=== PATIENT | male | born 1930 | race Hispanic/Latino ===

== ENCOUNTER 2017-10-22 16:34 | Inpatient (IN) | payer MEDICARE ==
[~2017-10-22 16:34] MED LIST: ISOVUE-370 76%-LOCM 1 ML ONE
[2017-10-22 16:57] LABS: Actual Bicarbonate (HCO3a) 18.5 mEq/L (22-26); Base Excess (BEa) -6.8 mEq/L (0 (+/-) 2.5); CO2 Tension 36.3 mmHg (35.0-45.0); Calcium, Ionized 1.1 mmol/L (1.12-1.30); Hematocrit-ABG 28.4 % (42.0-52.0); Hemoglobin (Hb) 11.5 g/dL (14.0-18.0); O2 Tension (PaO2) 206.4 mmHg (80.0-100.0); pH, Arterial 7.33 (7.35-7.45)
[2017-10-22 16:58] LABS: Analyzer IN Cardio ER; Puncture Site RBA
[2017-10-22 16:59] LABS: ALV-art Gradient 102.725 (0-20)
[2017-10-22] MEDS ORDERED: Piperacillin/Tazobactam 4.5 GM in Sodium Chloride 0.9% 100 ML IVPB SCH (17:00)
[2017-10-22 17:13] LABS: #Lymphocytes 0.7 thou/uL (1.20-3.40); #Monocytes 0.4 thou/uL (0.11-0.59); #Neutrophils 8.4 thou/uL (1.40-6.50); %Basophils 0.2 % (0.0-1.0); %Eosinophils 0.4 % (0.0-10.0); %Lymphocytes 7.7 % (21.0-51.0); %Monocytes 3.7 % (0.0-10.0); Hemoglobin 11.9 g/dL (14.0-18.0); Mean Corpuscular HGB CONC 31.1 g/dL (32.0-36.0); Mean Corpuscular Hemoglobin 29.5 pg (27.0-31.0); Mean Corpuscular Volume 95.1 fl (80.0-94.0); Mean Platelet Volume 9.9 fL (7.4-10.4); Platelet Count 140 thou/uL (130-400); RBC Distribution Width 13.4 % (11.5-14.5); Red Blood Cell (RBC) Count 4.01 mill/uL (4.70-6.10); White Blood Cell (WBC) Count 9.6 thou/uL (4.8-10.8)
[2017-10-22 17:22] LABS: INR-International Normal Ratio 1.3; Prothrombin Time 16.1 SEC (12.0-14.7)
[2017-10-22 17:43] LABS: CKMB 4.8 ng/mL (0-6.6); Troponin I 0.181 ng/mL (< 0.028)
[2017-10-22 17:44] LABS: Bilirubin Small (Negative); Blood, Urine Large (Negative); Clarity CLOUDY (Clear); Glucose, Urine (Dipstick) Negative (Negative); Leukocyte Negative (Negative); Nitrite Negative (Negative); Protein, Urine (Dipstick) 30 mg/dL (Neg-Trace); Specific Gravity, Urine 1.028 (1.002-1.036)
[2017-10-22 17:45] LABS: ALT (SGPT) 16 U/L (8-55); AST (SGOT) 31 U/L (5-34); Albumin 2.7 g/dL (3.4-4.8); Alkaline Phosphatase 53 U/L (40-150); Anion Gap 12 mmol/L (10-20); BUN (Urea Nitrogen) 26 mg/dL (8.4-25.7); Bilirubin, Total 0.6 mg/dL (0.2-1.2); CK (CPK) 353 U/L (30-200); Calc. Creatinine Clearance 0 mL/min (70-130); Calcium 7.8 mg/dL (7.8-10.44); Carbon Dioxide 23 mmol/L (23-31); Chloride 129 mmol/L (98-107); Estimated GFR-MDRD 76; Glucose 83 mg/dL (83-110); Lipase 24 U/L (8-78); Potassium 3.2 mmol/L (3.5-5.1); Protein, Total 5.7 g/dL (5.8-8.1); Sodium 161 mmol/L (136-145)
[2017-10-22 17:48] LABS: Bacteria/HPF None Seen HPF (None Seen)
[2017-10-22 17:49] LABS: Pathc Cast-AUWi Flag 10.02 (0-2.49); Yeast-AUWi Flag 85.6 (0-25.0)
[2017-10-22 17:50] LABS: Hyaline Casts/LPF NONE SEEN LPF (0-3 Hyaline); Manual Microscopic Reviewed? No Path Casts Seen; Renal Epithelial None Seen HPF (0-3); Transitional Epithelial NONE SEEN HPF (0-3); Yeast-All Forms None Seen HPF (None Seen)
[2017-10-22] MEDS ORDERED: Oseltamivir 6 MG/ML ORAL SUSP PER TUBE SCH (19:45)
--- NOTE | 2017-10-22 19:59 | RAD ---
PORTABLE CHEST 10/22/17 PROVIDED CLINICAL HISTORY: Respiratory distress. FINDINGS: No comparisons. The cardiac and mediastinal silhouette is within normal limits. Vascular calcificatio n involves the aortic arch. Endotracheal tube is present, to which projects below the thoracic inlet but above the joel. Left subclavian cardiac pacing device is noted with wires overlying expected lo cations of RA and RV. Nodular density overlying the right lung base is noted. Probable nipple shadow overlies the left lung base. Possible additional nodular opacity in the right perihilar region. No pl eural fluid or pneumothorax apparent. IMPRESSION: 1. ET positioning as above. 2. Pulmonary nodule at the right lung base for which nonemergent chest CT is recommended. Code T POS: [id number]
[2017-10-22 20:00] LABS: Osmolality, Serum 340 mOsm/kg (280-295)
[2017-10-22] MEDS ORDERED: Ondansetron HCl/PF 4 MG/2 ML Vial IVP PRN ×2 (20:40→22:33)
[2017-10-22] MEDS ORDERED: Acetaminophen 325 MG TAB PO PRN ×2 (20:40→22:33)
[2017-10-22] MEDS ORDERED: Ondansetron ODT 4 MG TAB SL PRN (20:40)
[2017-10-22 20:43] LABS: Thyroid Stimulating Hormone 3.3726 uIU/mL (0.35-4.94)
[2017-10-22] MEDS ORDERED: Dextrose 5 %-0.45 % NaCl 1,000 ML IV SCH (20:45)
--- NOTE | 2017-10-22 20:46 | CT ---
CT ABDOMEN AND PELVIS WITH IV CONTRAST 10/22/17 PROVIDED CLINICAL HISTORY: Sepsis. FINDINGS: There are multiple patchy/nodular areas of abnormal parenchymal opacity involving the visualized righ t middle and lower lobes. These demonstrate a CT appearance typical for infection. One of these likel y produce the chest radiographic appearance described on exam performed earlier same date. There are bilateral pleural effusions with passive atelectasis at the left lung base. Minimal patchy ground gla ss opacity is present within the left lower lobe that may also reflect infection. The liver, spleen, pancreas, kidneys and adrenal glands demonstrate no acute abnormality. A gallstone is noted within the gallbladder. There is a tubular structure immediately inferior and posterior to the greater curvature of the stomach and anterior to the left adrenal gland measuring about 3.3 cm. T he etiology and significance of this finding is uncertain, though this could reflect an enlarged lymp h node. The liver demonstrates an unremarkable CT appearance, as do the pancreas, adrenal glands, and kidneys as well as spleen. There is nonspecific fat stranding seen and a minimal amount of noncircumscribed presacral fluid. There is mild fat stranding seen in the retroperitoneum about the uncinate process of the pancreas. There is no bowel dilatation or free air apparent. Vascular calcifications are noted involving the abdominal aorta and its branches. The osseous structures demonstrate no concerning osteoblastic or osteolytic lesions. There is evidenc e for decubitus ulcer overlying the dorsal aspect of the inferior sacrum. A Rodríguez catheter is noted w ithin the urinary bladder. IMPRESSION: 1. Right greater than left lower lobe pneumonia. 2. Minimal fluid density within the retroperitoneum about the head and uncinate process of the p ancrease. Please correlate with laboratory values for acute pancreatitis. 3. Possible enlarged lymph node within the left upper quadrant as described above. Significance of this finding is uncertain. 4. Cholelithiasis. 5. Other findings as above. POS: [facility]
[2017-10-22 21:03] LABS: Lactic Acid 3.2 mmol/L (0.5-2.2)
[2017-10-22 21:10] LABS: Anion Gap 18 mmol/L (10-20); BUN (Urea Nitrogen) 25 mg/dL (8.4-25.7); Calc. Creatinine Clearance 0 mL/min (70-130); Calcium 7.8 mg/dL (7.8-10.44); Carbon Dioxide 15 mmol/L (23-31); Estimated GFR-MDRD 78; Glucose 113 mg/dL (83-110); Potassium 3.4 mmol/L (3.5-5.1); Sodium 160 mmol/L (136-145)
[2017-10-22 21:15] LABS: Chloride 130 mmol/L (98-107)
[2017-10-22] MEDS ORDERED: Lactated Ringer's 1,000 ML IV SCH (21:15)
[2017-10-22] MEDS ORDERED: Lacri-Lube Opth Oint 3.5 GM TUBE EA EYE PRN (21:18)
[2017-10-22] MEDS ORDERED: Sedation Protocol FS ONE (21:18)
[2017-10-22] MEDS ORDERED: DISCONTINUE PREVIOUS NARCOTIC PAIN MEDICATIONS AND BENZODIAZEPINES FS SCH (21:35)
[2017-10-22] MEDS ORDERED: Propofol 1,000 MG/100 ML VIAL IV PRN (21:35)
[2017-10-22] MEDS ORDERED: Fentanyl 20 MCG/ML 250 ML IVPB SCH (21:35)
[2017-10-22] MEDS ORDERED: Lorazepam 2 MG/ML VIAL SLOW IVP PRN (21:35)
[2017-10-22] MEDS ORDERED: Morphine 2 MG/ML SYRINGE IVP PRN (21:37)
[2017-10-22 21:39] VITALS: BMI 23.3
[2017-10-22 22:17] LABS: Osmolality, Urine 687 mOsm/kg (300-900)
[2017-10-22 22:33] LABS: Sodium, Urine 96 mmol/L (Not Available)
[2017-10-22] MEDS ORDERED: Acetaminophen 650 MG Suppository PR PRN (22:33)
[2017-10-22] MEDS ORDERED: Ondansetron ODT 4 MG TAB PO PRN (22:33)
[2017-10-22] MEDS: Dextrose 10% in Water 1,000 ML IV SCH (22:43)
--- NOTE | 2017-10-22 22:57 | CON ---
DATE OF CONSULTATION: 10/22/2017 SERVICE: Pulmonary Medicine. REASON FOR CONSULTATION: Ventilated patient. HISTORY OF PRESENT ILLNESS: The patient is an 86-year-old male with past medical history si gnificant for apparently advanced dementia. He is currently intubated and under the influence of jeffrey e sedation and I really cannot interact with him or get elements of the history from him. Everything is obtained from chart review. He was recently in the hospital at [facility] roughly 1 week ag o. He was in the hospital there because there was unsafe living environment for the patient. Possib ly, he had some cellulitis. He had an unstageable decubitus ulcer of the sacrum. His living conditi ons were found to be deplorable and he was brought into the hospital for that reason. On the day of discharge, he was having some low grade fevers. A chest x-ray demonstrated some nonspecific infiltra isadora. Empirically, the patient was given some Levaquin. He was ultimately discharged to [facility] and it was recommended that the patient be enrolled in Hospice. Apparently at that time, t hat was thought to be imminent. In the nursing facility, he never got enrolled onto the hospice pro shelly. Despite being a DNI/DNR at the other hospital, when he was discharged, apparently he did not molina ve an out of hospital DNI/DNR either. When EMS services were called to the patient at [facility], they ended up intubating him because they could not maintain his oxygen saturations. He was subsequently brought to our emergency department. He underwent evaluation and was discovered to have influenza. He was initiated on some antibiotics. Multiple laboratories were done. He subsequ ently was tucked into the ICU. He cannot provide additional elements of the history. PAST MEDICAL HISTORY: 1. History of stroke. 2. Dementia, advanced. 3. Debility, advanced. 4. Failure to thrive. 5. Hypertension. 6. Type 2 diabetes mellitus. 7. Sacral decubitus ulcer, present on admission. PAST SURGICAL HISTORY: Unknown. SOCIAL HISTORY: Unknown. FAMILY HISTORY: Unknown. ALLERGIES: No known drug allergies, this is unconfirmed. MEDICATIONS: List of his inpatient medications were reviewed. I have also looked at his discharge m edicines from [facility]. Multiple updates were made at this time. REVIEW OF SYSTEMS: This cannot be obtained as the patient is currently intubated under the influence of some sedation. PHYSICAL EXAMINATION: VITAL SIGNS: Afebrile, pulse 88, blood pressure 159/66, respirations 11, saturation 96% on 31% FIO2 and a PEEP of 5. GENERAL: The patient is somnolent. Without stimulation, he will fall back to sleep in less than 3 s econds. He is CAM positive. HEENT: Normocephalic atraumatic. Sclerae are white, conjunctivae pink. Oral and nasal mucosa is mo ist without lesions. NECK: No cervical lymphadenopathy. JVD is present at the angle of jaw. LUNGS: Decreased air entry. There is a very prolonged expiratory phase with polyphonic wheezing. HEART: Normal rate, regular. ABDOMEN: Soft, nontender, nondistended, bowel sounds are positive. MUSCULOSKELETAL: No cyanosis or clubbing. There is no pitting in the bilateral lower extremities. There is skin tenting present throughout. GENITOURINARY: Rodríguez catheter in place. NEUROLOGIC: He spontaneously opens his eyes and attends. Pupils are equal, round, and reactive. He is currently riding the ventilator. Gag and corneal reflexes are intact. LABORATORY DATA: WBC 9.6, hemoglobin 11.9, platelets 140,000. Neutrophil count is 88%. INR 1.3. T he pH 7.33, pCO2 of 36, pO2 of 206, this was on 50% FIO2 with a PEEP of 5 at that time. Serum osmola lity 340. BNP 530, TSH is normal. Cortisol level is also normal. Troponin 0.181. Lactate is up tr ending to 3.2. Sodium 161, potassium 3.2, chloride 129. Creatinine is 0.94. Liver function studies are essentially unremarkable. Urinalysis is positive for small bilirubin, urobilinogen, and some wh ite blood cells. Influenza A is positive and B is negative. IMAGIN. CT of the abdomen and pelvis demonstrates bibasilar pneumonia. Fluid at the head of the pancreas . Left upper quadrant lymphadenopathy, possible. Cholelithiasis. 2. Chest x-ray demonstrates pulmonary nodule at the right base which possibly represents a nipple sh adow. Patchy infiltrates are present throughout bilateral lung garg. Endotracheal tube is in a go od position. Dual lead pacemaker is in place. ASSESSMENT: 1. Severe sepsis secondary to influenza. 2. Acute bronchitis secondary to influenza A. 3. Hypernatremia. 4. Metabolic encephalopathy. 5. Dementia, advanced. PLAN: We will give the patient daily dose of steroids and nebulized medications. We will provide hi m with Tamiflu. Free water will be provided, but after initial fluid resuscitation. Potassium will be replaced. Pulmonary Critical Care will continue to follow. Palliative Care consult will be initi ated as it seems that there is a pretty terrible social situation that is occurring here. Until we c an clarify what the patient's wishes would be under these circumstances, we will continue to provide supportive measures. Critical care time: 50 minutes.
--- NOTE | 2017-10-22 23:23 | HP ---
DATE OF ADMISSION: 22/10/2017 PRIMARY CARE PHYSICIAN: Dr. Cleaning at [facility]. CHIEF COMPLAINT: Shortness of breath with hypoxia. CODE STATUS: DNR. This was verified with the son by Dr. Duff. SURROGATE DECISION-MAKER: Son. REASON FOR ADMISSION: Respiratory failure. HISTORY OF PRESENT ILLNESS: Patient is an 86-year-old male with history of CVA and atrial fibrillati on who presented to the emergency room by EMS with shortness of breath and was subsequently intubated . The patient was admitted to [facility] from 10/15/2017 to 10/17/2017. He was admitted out of concern for safe living environment with possible cellulitis. Police welfare check was made and he was brought here as he was found in feces and not able to take care of himself . Per [place] and [place] record, patient is bed bound and is basically noncommunicative. He also had s ome sacral wounds on his back. He was discharged to [facility] with pureed diet. There was ongoing plan for transitioning to hospice. Details are unavailable at this time. Patient is intubated and sedated on mechanical ventilation. No family at the bedside. In the emergency room , his initial vital signs showed temperature 100.6 with respiration 12, pulse rate of 98, blood press ure of 167/91 with 100% on mechanical ventilation. His labs were consistent with sodium of 161 with potassium 3.2, chloride of 129 with BUN 26, creatinine 0.94 with a serum osmolality 340, lactic acid 2.6. His influenzae testing was positive for influenza A. His CT scan of the abdomen and pelvis was consistent with pneumonia, right greater than left lower lobe. His chest x-ray, however, was negati ve. He received Tamiflu, Zosyn, vancomycin, and IV fluids in the emergency room. PAST MEDICAL HISTORY: 1. History of cerebrovascular accident. 2. Chronic atrial fibrillation. 3. Hypertension. 4. Glaucoma. 5. Decubitus ulcer present on admission. 6. Deconditioning. PAST SURGICAL HISTORY: Pacemaker placement. ALLERGIES: No known drug allergies. CURRENT MEDICATIONS: At the [facility], vitamin C 500 mg b.i.d., zinc sulfate 220 mg daily, Pro-St at 30 mL b.i.d., Levaquin 750 mg daily for 10 days that was started on the . Other p.r.n. medica tions per [facility] protocol. FAMILY HISTORY: Cannot be obtained from the patient due to current cognitive status. SOCIAL HISTORY: Cannot be obtained from the patient due to current cognitive status. REVIEW OF SYSTEMS: Cannot be obtained from the patient due to current cognitive status. PHYSICAL EXAMINATION: VITAL SIGNS: As discussed above. GENERAL: An 86-year-old male, intubated on mechanical ventilation. HEENT: Head atraumatic, normocephalic. Sclerae anicteric. Dry mucous membranes. Endotracheal tube noted. NECK: Supple. No neck stiffness. LUNGS: Showed bibasilar crackles with scattered rhonchi and wheezing. Trachea was in midline. HEART: S1, S2 present. Tachycardic, 2/6 systolic murmur over the mitral area. No rubs or gallops. ABDOMEN: Soft. Bowel sounds present. Nondistended, no masses palpable. EXTREMITIES: No edema or calf tenderness. SKIN: Warm and dry. There is decubitus ulcer at the sacrum with dressing noted. NEUROLOGIC/PSYCHIATRIC: Could not be done due to current cognitive status. PERIPHERAL VASCULAR: Radial pulses palpable, low volume. MUSCULOSKELETAL: No joint swelling or tenderness. LABORATORY FINDINGS: As discussed above, chest x-ray by my review as discussed above. EKG by my rev iew showed atrial fibrillation with rapid ventricular response, heart rate of 104. CT scan of the ab domen as discussed above. IMPRESSION: 1. Acute hypoxic respiratory failure. 2. Acute Influenzae A infection with bibasilar pneumonia. Pneumonia is probably secondary to influe nza A versus aspiration. 3. Swallow dysfunction. 4. Physical deconditioning. 5. Severe dehydration with sodium of 161 and serum osmolality 340. 6. Hypokalemia. 7. Elevated troponins, probably secondary to demand ischemia. 8. Lactic acidosis. 9. Severe protein-calorie malnutrition. 10. Sepsis with acute organ dysfunction. 11. Chronic anemia. 12. Chronic atrial fibrillation, not an anticoagulation candidate. 13. Cholelithiasis. 14. Sick sinus syndrome, status post pacemaker. 15. Recent hospitalization at [facility] for cellulitis and inability to take care of himself. 16. History of cerebrovascular accident. PLAN: The patient will be monitored in the Intensive Care Unit. Ball Sorter has already seen the patient. We will continue D10 IV fluids. Ventilation sedation protocol. Palliative care team has ravindra hernandez consulted. We will monitor sodium closely. Empiric antibiotics. Recheck labs in a.m. We discu ssed the plan of care with the family. CODE STATUS: DNR, which was confirmed with the family by Dr. Duff. Surrogate decision maker is son, Zak Perales, phone number is [phone].
[2017-10-23] MEDS ORDERED: Famotidine 40 MG/5 ML Oral Suspension PER TUBE SCH (09:00)
[2017-10-23] MEDS ORDERED: Famotidine/PF 20 mg/2ml Vial SLOW IVP SCH (09:00)
[2017-10-23] MEDS ORDERED: Dextrose 10% in Water 1,000 ML IV SCH (14:43)
[2017-10-23] MEDS ORDERED: Morphine 2 MG/ML SYRINGE SLOW IVP PRN (14:52)
--- NOTE | 2017-10-23 15:54 | PRG ---
DATE OF SERVICE: 10/23/2017 SERVICE: Pulmonary Medicine. INTERVAL HISTORY: The patient is doing okay from a respiratory and cardiovascular standpoint this mo rning. Otherwise, there has been no interval change to his condition. It is my understanding that t he son is going to come in today. Once he provide this for the appropriate documentation, we will li zac transition over to comfort care only as we discussed last night on the phone, shortly after my d ictation. The patient cannot provide any additional elements of the history. PHYSICAL EXAMINATION: VITAL SIGNS: Afebrile, pulse 70, blood pressure 130/59, respirations 24, saturation 100% on 27% FIO2 and PEEP of 5. GENERAL: The patient is intubated and under the influence of some sedation. HEENT: Normocephalic, atraumatic. Sclerae are white, conjunctivae pink. Oral mucosa is moist witho ut lesions. LUNGS: Decent air entry. There is no prolonged expiratory phase, wheezing, rhonchi, or crackles. HEART: Normal rate, regular. ABDOMEN: Soft, nontender, nondistended. Bowel sounds are positive. MUSCULOSKELETAL: No cyanosis or clubbing. No pitting in the bilateral lower extremities. NEUROLOGIC: Grossly nonfocal. LABORATORY DATA: Sodium 160, potassium 3.4, chloride 130. Basic metabolic profile is otherwise unre markable. Lactate 3.2, troponin 0.18. TSH and cortisol levels are normal. Influenza A is positive, B negative. Bacterial culture of the coccyx and blood cultures x2 are negative to date. ASSESSMENT: 1. Acute hypoxic respiratory failure, improving. 2. Severe sepsis secondary to influenza. 3. Acute bronchitis secondary to influenza A. 4. Hypernatremia and hyperchloremia, improving. 5. Metabolic encephalopathy. 6. Dementia, advanced. 7. Severe protein-calorie malnutrition. 8. Decubitus ulcer, present on admission. PLAN: Once the family is ready, we will transition the patient over to comfort care only. All antib iotics, and other medications will be discontinued and we will give him Ativan and morphine to be use d for comfort if needed. Truth be told, the patient is breathing comfortably on minimal support off the ventilator. My suspicion is he will go on to breathe for a couple of hours if not days after the transition has made. If he continues to breathe, he can be transitioned to the floor with the care of hospice. CRITICAL CARE TIME: Thirty minutes.
[2017-10-23] MEDS: Dextrose 10% in Water 1,000 ML IV SCH (17:52)
--- NOTE | 2017-10-23 19:51 | PDOC.PN ---
- Subjective Encounter Start Date: 10/23/17 Encounter Start Time: 10:30 Patient seen and examined around 1030 am. On [facility] Vent. - Objective Resuscitation Status: Resuscitation Status DNR:Do Not Resuscitate Vital Signs & Weight: Vital Signs (12 hours) Temp Pulse Resp Pulse Ox 10/23/17 16:00 97.6 F 10/23/17 12:00 98.1 F 10/23/17 11:00 100 10/23/17 10:00 16 10/23/17 08:01 83 10/23/17 08:00 98.3 F 65 14 100 Weight Admit Weight 136 lb 0.403 oz Weight 136 lb 0.403 oz Most Recent Monitor Data Heart Rate from ECG 108 NIBP 124/59 NIBP BP-Mean 91 Respiration from ECG 26 SpO2 100 I&O: 10/22/17 10/23/17 10/24/17 06:59 06:59 06:59 Intake Total 2085 Output Total 445 340 Balance 1640 -340 Result Diagrams: 10/22/17 17:06 10/22/17 20:42 Radiology Reviewed by me: Yes (CXR - no infiltrate on 10/22) EKG Reviewed by me: Yes (Tele SR) Phys Exam - Physical Examination Constitutional: NAD (on Vent) Respiratory: no wheezing B/L rhonchi with rales at bases Cardiovascular: RRR, no rub no heaves/pulsation Gastrointestinal: soft, positive bowel sounds no guarding/rigidity Musculoskeletal: no edema Neuro/Psych - Cannot assess due to current cognition Dx/Plan - Plan DVT proph w/SCDs IMPRESSION: 1. Sepsis with acute organ dysfunction/Acute hypoxic respiratory failure/Acute Influenzae A infection with bibasilar pneumonia prob due to influenza A versus aspiration. 2. Severe dehydration with sodium of 161 and serum osmolality 340. 3. Hypokalemia. 4. Elevated troponins, probably secondary to demand ischemia. 5. Lactic acidosis. 6. Severe protein-calorie malnutrition/Chronic anemia/Chronic atrial fibrillation, not an anticoagulation candidate/Cholelithiasis/Sick sinus syndrome, status post pacemaker/Recent hospitalization at [facility] for cellulitis and inability to take care of himself/History of cerebrovascular accident/Swallow dysfunction/Physical deconditioning PLAN: * Plan d/w DPNILSA Crespo in detail. He agrees with hospice. * Consult Hospice * Comfort care per family Review of Systems - Review of Systems Other: Cannot obtain due to sedation. - Medications/Allergies Allergies/Adverse Reactions: Allergies Allergy/AdvReac Type Severity Reaction Status Date / Time No Allergy Information Allergy Verified 10/22/17 22:14 Available Medications: Current Medications Acetaminophen (Tylenol) 650 mg WI Q4H PRN PRN Reason: Headache/Fever or Pain Lorazepam (Ativan) 2 mg SLOW IVP Q15MIN PRN PRN Reason: Anxiety/Agitation Mineral Oil/White Petrolatum (Lacri-Lube Ointment) 0 gm EA EYE PRN PRN PRN Reason: Dry Eyes Morphine Sulfate (Morphine) 2 mg SLOW IVP Q15MIN PRN PRN Reason: pain or shortness of breath Last Admin: 10/23/17 19:18 Dose: 2 mg Ondansetron HCl (Zofran) 4 mg IVP Q6H PRN PRN Reason: Nausea/Vomiting
[2017-10-24] MEDS: Lorazepam 2 MG/ML VIAL SLOW IVP PRN ×3 (09:26→13:45)
[2017-10-24] MEDS: Scopolamine 1.5 mg/72 hour Patch TD SCH (15:26)
--- NOTE | 2017-10-24 20:37 | PDOC.PN ---
- Subjective Encounter Start Date: 10/24/17 Encounter Start Time: 16:00 Patient seen and examined. Appears comfortable - Objective Resuscitation Status: Resuscitation Status DNR:Do Not Resuscitate MAR Reviewed: Yes Vital Signs & Weight: Vital Signs (12 hours) Temp Pulse Resp BP Pulse Ox 10/24/17 14:00 97.6 F 79 20 155/75 H 92 L 10/24/17 12:00 97.8 F 10/24/17 08:48 95 Weight Admit Weight 136 lb 0.403 oz Weight 136 lb 0.403 oz Most Recent Monitor Data Heart Rate from ECG 65 NIBP 127/65 NIBP BP-Mean 83 Respiration from ECG 20 SpO2 100 I&O: 10/23/17 10/24/17 10/25/17 06:59 06:59 06:59 Intake Total 2085 120 Output Total 445 450 20 Balance 1640 -330 -20 Result Diagrams: 10/22/17 17:06 10/22/17 20:42 Dx/Plan - Plan IMPRESSION: 1. Sepsis with acute organ dysfunction/Acute hypoxic respiratory failure/Acute Influenzae A infection with bibasilar pneumonia prob due to influenza A versus aspiration. 2. Severe dehydration with sodium of 161 and serum osmolality 340. 3. Hypokalemia. 4. Elevated troponins, probably secondary to demand ischemia. 5. Lactic acidosis. 6. Severe protein-calorie malnutrition/Chronic anemia/Chronic atrial fibrillation, not an anticoagulation candidate/Cholelithiasis/Sick sinus syndrome, status post pacemaker/Recent hospitalization at [facility] for cellulitis and inability to take care of himself/History of cerebrovascular accident/Swallow dysfunction/Physical deconditioning PLAN: * Await Hospice Eval Review of Systems - Medications/Allergies Allergies/Adverse Reactions: Allergies Allergy/AdvReac Type Severity Reaction Status Date / Time No Allergy Information Allergy Verified 10/22/17 22:14 Available Medications: Current Medications Acetaminophen (Tylenol) 650 mg ID Q4H PRN PRN Reason: Headache/Fever or Pain Lorazepam (Ativan) 2 mg SLOW IVP Q15MIN PRN PRN Reason: Anxiety/Agitation Last Admin: 10/24/17 13:45 Dose: 2 mg Mineral Oil/White Petrolatum (Lacri-Lube Ointment) 0 gm EA EYE PRN PRN PRN Reason: Dry Eyes Morphine Sulfate (Morphine) 2 mg SLOW IVP Q15MIN PRN PRN Reason: pain or shortness of breath Last Admin: 10/23/17 19:18 Dose: 2 mg Ondansetron HCl (Zofran) 4 mg IVP Q6H PRN PRN Reason: Nausea/Vomiting Scopolamine (Transderm Scop) 1.5 mg TD Q3D [facility] Last Admin: 10/24/17 15:26 Dose: 1.5 mg
[2017-10-25] MEDS: Morphine 2 mg/2ml in 0.9% NaCl PF SYRINGE SLOW IVP PRN (00:49)
--- NOTE | 2017-10-25 22:34 | PDOC.PN ---
- Subjective Encounter Start Date: 10/25/17 Encounter Start Time: 16:00 Patient seen and examined. Appears comfortable. - Objective Resuscitation Status: Resuscitation Status DNR:Do Not Resuscitate MAR Reviewed: Yes Vital Signs & Weight: Vital Signs (12 hours) Temp Pulse Resp BP Pulse Ox 10/25/17 20:00 97.9 F 66 28 H 94 L 10/25/17 19:54 97.9 F 66 28 H 144/76 H 91 L 10/25/17 16:00 97.1 F L 65 20 152/71 H 93 L 10/25/17 11:35 96.1 F L 65 16 149/80 H 95 Weight Admit Weight 136 lb 0.403 oz Weight 136 lb 0.403 oz Most Recent Monitor Data Heart Rate from ECG 65 NIBP 127/65 NIBP BP-Mean 83 Respiration from ECG 20 SpO2 100 I&O: 10/24/17 10/25/17 10/26/17 06:59 06:59 06:59 Intake Total 120 Output Total 450 20 300 Balance -330 -20 -300 Result Diagrams: 10/22/17 17:06 10/22/17 20:42 Phys Exam - Physical Examination Constitutional: NAD Respiratory: no wheezing, no rhonchi Coase BS B/L Cardiovascular: RRR, no rub Gastrointestinal: soft, positive bowel sounds Musculoskeletal: no edema Dx/Plan - Plan IMPRESSION: 1. Sepsis with acute organ dysfunction/Acute hypoxic respiratory failure/Acute Influenzae A infection with bibasilar pneumonia prob due to influenza A versus aspiration. 2. Severe dehydration with sodium of 161 and serum osmolality 340. 3. Hypokalemia. 4. Elevated troponins, probably secondary to demand ischemia. 5. Lactic acidosis. 6. Severe protein-calorie malnutrition/Chronic anemia/Chronic atrial fibrillation, not an anticoagulation candidate/Cholelithiasis/Sick sinus syndrome, status post pacemaker/Recent hospitalization at [facility] for cellulitis and inability to take care of himself/History of cerebrovascular accident/Swallow dysfunction/Physical deconditioning PLAN: * Await Hospice Eval * Case manger called Zak - left message Review of Systems - Review of Systems Other: Cannot obtain due to current mentation - Medications/Allergies Allergies/Adverse Reactions: Allergies Allergy/AdvReac Type Severity Reaction Status Date / Time No Allergy Information Allergy Verified 10/22/17 22:14 Available Medications: Current Medications Acetaminophen (Tylenol) 650 mg [place] Q4H PRN PRN Reason: Headache/Fever or Pain Lorazepam (Ativan) 2 mg SLOW IVP Q15MIN PRN PRN Reason: Anxiety/Agitation Last Admin: 10/24/17 13:45 Dose: 2 mg Mineral Oil/White Petrolatum (Lacri-Lube Ointment) 0 gm EA EYE PRN PRN PRN Reason: Dry Eyes Morphine Sulfate/Sodium Chloride (Morphine 0.9% Nacl Pf 2 Mg/2ml) 2 mg SLOW IVP Q15MIN PRN PRN Reason: pain or shortness of breath Last Admin: 10/25/17 00:49 Dose: 2 mg Ondansetron HCl (Zofran) 4 mg IVP Q6H PRN PRN Reason: Nausea/Vomiting Scopolamine (Transderm Scop) 1.5 mg TD Q3D [facility] Last Admin: 10/24/17 15:26 Dose: 1.5 mg
[2017-10-26] MEDS: Morphine 2 mg/2ml in 0.9% NaCl PF SYRINGE SLOW IVP PRN ×2 (08:23→13:48)
--- NOTE | 2017-10-26 20:33 | PDOC.PN ---
- Subjective Encounter Start Date: 10/26/17 Encounter Start Time: 15:00 Patient seen and examined. No overnight events. - Objective Resuscitation Status: Resuscitation Status DNR:Do Not Resuscitate MAR Reviewed: Yes Vital Signs & Weight: Weight Admit Weight 136 lb 0.403 oz Weight 136 lb 0.403 oz Most Recent Monitor Data Heart Rate from ECG 65 NIBP 127/65 NIBP BP-Mean 83 Respiration from ECG 20 SpO2 100 I&O: 10/25/17 10/26/17 10/27/17 06:59 06:59 06:59 Output Total 20 300 300 Balance -20 -300 -300 Result Diagrams: 10/22/17 17:06 10/22/17 20:42 Phys Exam - Physical Examination Constitutional: NAD Respiratory: no wheezing, no rhonchi Coarse BS B/L Cardiovascular: RRR Gastrointestinal: soft Dx/Plan - Plan DVT proph w/SCDs IMPRESSION: 1. Sepsis with acute organ dysfunction/Acute hypoxic respiratory failure/Acute Influenzae A infection with bibasilar pneumonia prob due to influenza A versus aspiration. 2. Severe dehydration with sodium of 161 and serum osmolality 340. 3. Hypokalemia. 4. Elevated troponins, probably secondary to demand ischemia. 5. Lactic acidosis. 6. Severe protein-calorie malnutrition/Chronic anemia/Chronic atrial fibrillation, not an anticoagulation candidate/Cholelithiasis/Sick sinus syndrome, status post pacemaker/Recent hospitalization at [facility] for cellulitis and inability to take care of himself/History of cerebrovascular accident/Swallow dysfunction/Physical deconditioning PLAN: * Await Hospice Eval * Case manger trying to arrange hospice Review of Systems - Review of Systems Other: Cannot obtain due to current cognition - Medications/Allergies Allergies/Adverse Reactions: Allergies Allergy/AdvReac Type Severity Reaction Status Date / Time No Allergy Information Allergy Verified 10/22/17 22:14 Available Medications: Current Medications Acetaminophen (Tylenol) 650 mg PA Q4H PRN PRN Reason: Headache/Fever or Pain Lorazepam (Ativan) 2 mg SLOW IVP Q15MIN PRN PRN Reason: Anxiety/Agitation Last Admin: 10/24/17 13:45 Dose: 2 mg Mineral Oil/White Petrolatum (Lacri-Lube Ointment) 0 gm EA EYE PRN PRN PRN Reason: Dry Eyes Morphine Sulfate/Sodium Chloride (Morphine 0.9% Nacl Pf 2 Mg/2ml) 2 mg SLOW IVP Q15MIN PRN PRN Reason: pain or shortness of breath Last Admin: 10/26/17 13:48 Dose: 2 mg Ondansetron HCl (Zofran) 4 mg IVP Q6H PRN PRN Reason: Nausea/Vomiting Scopolamine (Transderm Scop) 1.5 mg TD Q3D [facility] Last Admin: 10/24/17 15:26 Dose: 1.5 mg
[2017-10-27] MEDS: Morphine 2 mg/2ml in 0.9% NaCl PF SYRINGE SLOW IVP PRN (08:47)
--- NOTE | 2017-10-27 09:34 | PDOC.PN ---
- Subjective Encounter Start Date: 10/27/17 Encounter Start Time: 09:31 Patient seen and examined. No new complaints. No overnight events - Objective Resuscitation Status: Resuscitation Status DNR:Do Not Resuscitate MAR Reviewed: Yes Vital Signs & Weight: Weight Admit Weight 136 lb 0.403 oz Weight 136 lb 0.403 oz Most Recent Monitor Data Heart Rate from ECG 65 NIBP 127/65 NIBP BP-Mean 83 Respiration from ECG 20 SpO2 100 I&O: 10/26/17 10/27/17 10/28/17 06:59 06:59 06:59 Output Total 300 750 Balance -300 -750 Result Diagrams: 10/22/17 17:06 10/22/17 20:42 Phys Exam - Physical Examination Constitutional: NAD Respiratory: no wheezing, no rhonchi Cardiovascular: RRR, no rub Gastrointestinal: soft, non-tender, positive bowel sounds Musculoskeletal: no edema Neurological: moves all 4 limbs Dx/Plan - Plan DVT proph w/SCDs IMPRESSION: 1. Sepsis with acute organ dysfunction/Acute hypoxic respiratory failure/Acute Influenzae A infection with bibasilar pneumonia prob due to influenza A versus aspiration. 2. Severe dehydration with sodium of 161 and serum osmolality 340. 3. Hypokalemia. 4. Elevated troponins, probably secondary to demand ischemia. 5. Lactic acidosis. 6. Severe protein-calorie malnutrition/Chronic anemia/Chronic atrial fibrillation, not an anticoagulation candidate/Cholelithiasis/Sick sinus syndrome, status post pacemaker/Recent hospitalization at [facility] for cellulitis and inability to take care of himself/History of cerebrovascular accident/Swallow dysfunction/Physical deconditioning PLAN: * Await Hospice Eval * Case manger trying to arrange hospice Review of Systems - Review of Systems Respiratory: negative: Cough, Dry, Shortness of Breath, Hemoptysis, SOB with Excertion, Pleuritic Pain, Sputum, Wheezing Cardiovascular: negative: chest pain, palpitations, orthopnea, paroxysmal nocturnal dyspnea, edema, light headedness - Medications/Allergies Allergies/Adverse Reactions: Allergies Allergy/AdvReac Type Severity Reaction Status Date / Time No Allergy Information Allergy Verified 10/22/17 22:14 Available Medications: Current Medications Acetaminophen (Tylenol) 650 mg CA Q4H PRN PRN Reason: Headache/Fever or Pain Lorazepam (Ativan) 2 mg SLOW IVP Q15MIN PRN PRN Reason: Anxiety/Agitation Last Admin: 10/24/17 13:45 Dose: 2 mg Mineral Oil/White Petrolatum (Lacri-Lube Ointment) 0 gm EA EYE PRN PRN PRN Reason: Dry Eyes Morphine Sulfate/Sodium Chloride (Morphine 0.9% Nacl Pf 2 Mg/2ml) 2 mg SLOW IVP Q15MIN PRN PRN Reason: pain or shortness of breath Last Admin: 10/27/17 08:47 Dose: 2 mg Ondansetron HCl (Zofran) 4 mg IVP Q6H PRN PRN Reason: Nausea/Vomiting Scopolamine (Transderm Scop) 1.5 mg TD Q3D EL Last Admin: 10/24/17 15:26 Dose: 1.5 mg
[2017-10-27] MEDS: Scopolamine 1.5 mg/72 hour Patch TD SCH (17:59)
[2017-10-27 21:18] VITALS: BP 115/42; TEMP 98.8
--- NOTE | 2017-10-28 10:35 | DS ---
DATE OF : 10/28/2017 at 0310. Family was notified. BRIEF HOSPITAL COURSE: The patient was an 86-year-old male who was brought in from [facility] with respiratory failure. He was placed on mechanical ventilation. His initial labs w ere consistent with several electrolyte imbalances. His Influenza testing was also positive. CT sca n of the chest was positive for pneumonia. Please refer to the history and physical for further deta ils. The patient was admitted to the Intensive Care Unit with a diagnosis of acute hypoxic respiratory jaron lure with pneumonia as well as influenza A infection. He also had multiple electrolyte imbalance. T he case was discussed with the son, Zak Perales by myself as well as Pulmonary, Dr. Duff. He was terminally extubated after the above discussion. He was then transferred to the medical floor f or comfort measures. He this morning. Family updated. FINAL DIAGNOSES: 1. Sepsis with acute organ dysfunction with acute hypoxic respiratory failure due to influenza A inf ection with bibasilar pneumonia. 2. Electrolyte abnormality. Serum sodium was 161 with serum osmolarity 340. 3. Hypokalemia. 4. Lactic acidosis. 5. Elevated troponins, probably secondary to demand ischemia. 6. Severe protein calorie malnutrition. 7. Dehydration on admission. 8. Chronic anemia. 9. Chronic atrial fibrillation. 10. Cholelithiasis. 11. Sick sinus syndrome, status post pacemaker. 12. History of cerebrovascular accident. 13. Swallow dysfunction. 14. Physical deconditioning. 15. Recent hospitalization at [facility] for cellulitis.
--- NOTE | 2017-11-01 13:49 | EKG ---
Test Reason : Blood Pressure : / mmHG Vent. Rate : 104 BPM Atrial Rate : 104 BPM P-R Int : 000 ms QRS Dur : 098 ms QT Int : 298 ms P-R-T Axes : 000 -63 129 degrees QTc Int : 391 ms Atrial fibrillation with rapid ventricular response Left axis deviation Anterior infarct , age undetermined Abnormal ECG Confirmed by MAG LOPEZ ([id number]), associate editor RENATE HARRIS ([id number]) on 11/01/2017 1:49:12 PM Referred By: Confirmed By:MAG LOPEZ
== END 2017-10-28 03:10 | disposition expired | DRG 871 ==
LOC: ERS 16:34 → CCU 20:03 → T4-B 10-24 14:29
PROVIDERS: ADMIT Emergency Medicine; ATTEND Internal Medicine
PROC: 5A1935Z Respiratory Ventilation, Less than 24 Consecutive Hours (ICD-10-PCS; principal; 2017-10-22)
DX: A41.89 Other specified sepsis (principal); J96.01 Acute respiratory failure with hypoxia; E43 Unspecified severe protein-calorie malnutrition; J10.00 Influenza due to other identified influenza virus with unspecified type of pneumonia; G93.41 Metabolic encephalopathy; L89.153 Pressure ulcer of sacral region, stage 3; E87.2 Acidosis; E87.0 Hyperosmolality and hypernatremia; R13.10 Dysphagia, unspecified; I24.8 Other forms of acute ischemic heart disease; L03.90 Cellulitis, unspecified; E87.8 Other disorders of electrolyte and fluid balance, not elsewhere classified; I48.2 Chronic atrial fibrillation; D64.9 Anemia, unspecified; E86.0 Dehydration; J20.8 Acute bronchitis due to other specified organisms; Z51.5 Encounter for palliative care; R65.20 Severe sepsis without septic shock; E87.6 Hypokalemia; Z68.23 Body mass index [BMI] 23.0-23.9, adult; K80.20 Calculus of gallbladder without cholecystitis without obstruction; Z95.0 Presence of cardiac pacemaker; Z86.73 Personal history of transient ischemic attack (TIA), and cerebral infarction without residual deficits; F03.90 Unspecified dementia, unspecified severity, without behavioral disturbance, psychotic disturbance, mood disturbance, and anxiety; Z66 Do not resuscitate; Z74.01 Bed confinement status
CPT/HCPCS: 36415; 71010; 74177; 80053; 81003; 81015; 82533; 82550; 82553; 82805; 83605; 83690; 83735; 83880; 83930; 83935; 84300; 84443; 84484; 85025; 85610; 85730; 87040; 87070; 87077; 87186; 87205; 93005; 94002; 94003; 94640; 96365; J2060; J2270; J2543; J2704; J2920; J3370; J7050; J7620; S0028